=== PATIENT | male | born 1970 | race Caucasian/White ===

== ENCOUNTER 2016-12-09 07:45 | Emergency (ER) | payer BC, OTHER ==
[~2016-12-09] VITALS: Ht 175.3 cm; Wt 90.7 kg
[2016-12-09 08:01] VITALS: BP 151/91
--- NOTE | 2016-12-09 08:10 | Emergency Room Report ---
History of Present Illness General Chief Complaint: Pain Source: Patient Present Illness HPI 46YOM presents >24 hours after accidentally walking into door yesterday morning in the dark. Thinks he "has a concussion." Hit forehead, top of bridge of nose. No LOC. No nausea/vomiting, headache, change in vision. History of HTN - takes meds. Denies focal extremity weakness, slurred speech, facial droop. Denies other injury. Sustained small abrasion, no bleeding. Concerned because "my mother recently fell out of bed and had subdural hematoma." Allergies: Coded Allergies: PENICILLINS (Verified Allergy, Unknown, 12/17/10) Patient History Past Medical History: HTN, other - HLD Past Surgical History: none Pertinent Family History: none Social History: Denies: alcohol use, drug use, smoking Immunizations: UTD Reviewed Nursing Documentation: PMH: Agreed, PSxH: Agreed Nursing Documentation-PMH Past Medical History: No History, Except For Hx Hypertension: Yes Review of Systems All Other Systems: negative except mentioned in HPI Physical Exam Vital Signs Date Time Temp Pulse Resp B/P Pulse Ox O2 Delivery O2 Flow Rate FiO2 12/09/16 07:55 97.7 92 20 151/91 100 Room Air Sp02 EP Interpretation: reviewed, abnormal General Appearance: normal inspection, well appearing, no apparent distress, alert, GCS 15, non-toxic Head: normocephalic, other - small abrasion to middle of forehead between eyebrows. No periorbital or nasal bone ttp. No ecchymoses Eyes: bilateral eye PERRL, bilateral eye other ENT: normal ENT inspection, hearing grossly normal, normal voice Neck: normal inspection, full range of motion, supple, no bony tend Respiratory: normal inspection, lungs clear, normal breath sounds, no respiratory distress, no retraction, no wheezing Cardiovascular #1: regular rate, rhythm, no edema Gastrointestinal: normal inspection, normal bowel sounds, non tender, soft, no guarding, no hernia Genitourinary: no CVA tenderness Musculoskeletal: normal inspection, back normal, normal range of motion, Carli' s Sign negative Neurologic: normal inspection, alert, oriented x3, responsive, instructional design technologist III-XII nml as tested, motor strength/tone normal, speech normal Psychiatric: normal inspection, judgement/insight normal, mood/affect normal Skin: normal inspection Medical Decision Making Diagnostic Impression: Primary Impression: Head injury due to trauma Qualified Codes: S09.90XA - Unspecified injury of head, initial encounter ER Course VS notable for slightly elevated BP. Afebrile. Known HTN, on medication. No focal neuro deficits Minimal trauma on exam CT head negative for acute traumatic injury Patient reassured PMD referral for Neurology referral for persistent symptoms to eval for concussion if needed DC home Last Vital Signs Date Time Temp Pulse Resp B/P Pulse Ox O2 Delivery O2 Flow Rate FiO2 12/09/16 08:01 97.7 20 151/91 100 Room Air 12/09/16 07:55 92 Status: improved Disposition: HOME, SELF-CARE DANIEL MOBLEY M.D. December 09, 2016 08:09
[2016-12-09 09:21] VITALS: BP 143/86
--- NOTE | 2016-12-09 10:33 | Diagnostic Imaging Report ---
Indication: Headache status post head trauma Technique: Continuous helical CT scanning of the head was performed without intravenous contrast material. Axial and coronal 5 mm sections were generated. Radiation dose was minimized using automated exposure control Dose: Total Dose Length Product - DLP [address] Dose Index - CTDIvol(s) 70.38 mGy. Comparison: None Findings: The ventricular system is normal in size and configuration. There is no shift of midline structures. No abnormal extra-axial fluid collections are noted. There is no evidence of intracerebral bleeding. No other abnormal high or low density areas are noted within the brain. There is evidence of slight scalp soft tissue injury near the vertex. There is evidence of prior left optic globe surgery Impression: Normal CT scan of the head without contrast material. Evidence of extracranial scalp soft tissue injury The CT scanner at [facility] is accredited by the [employer] and the scans are performed using protocols designed to limit radiation exposure to as low as reasonably achievable to attain images of sufficient resolution adequate for diagnostic evaluation.
== END 2016-12-09 09:31 | disposition home or self-care (01) ==
LOC: EMR 08:09
DX: S00.81XA Abrasion of other part of head, initial encounter (principal); W22.01XA Walked into wall, initial encounter; Y92.009 Unspecified place in unspecified non-institutional (private) residence as the place of occurrence of the external cause; I10 Essential (primary) hypertension; E78.5 Hyperlipidemia, unspecified; Z88.0 Allergy status to penicillin
CPT/HCPCS: 70450; 99284